=== PATIENT | female | born 1950 | race Caucasian/White ===

== ENCOUNTER → 2016-04-29 | Outpatient (CLI) | payer OTHER, MEDICARE ==
--- NOTE | 2016-04-29 16:38 | MR ---
MRI Upper Extremity, Right Shoulder History: Right shoulder pain. ICD10 code M25.511. Technique: MRI was performed of the right shoulder using a 3 [employer] MRI system. Oblique coronal, obliq ue sagittal, and axial images were obtained with standard imaging sequences. Findings: Acromioclavicular Region: Mild degenerative change is seen in the acromioclavicular joint. Prominent anterior curve and lateral downslope to the acromion with a subacromial spur. Subacromial/subdeltoid fluid collection. Rotator Cuff: Abnormal signal intensity and attenuation is seen in the distal supraspinatus tendon. T here is approximately 75% attenuation of the distal 1 cm. Mild abnormal signal intensity is seen in t he infraspinatus tendon without attenuation. Teres minor is unremarkable. Abnormal signal intensity i s seen in the distal subscapularis tendon with intrasubstance partial tear. Biceps tendon: Long head of the biceps tendon partially subluxes over the lesser tuberosity into the distal superior 1 cm of the subscapularis tendon. This abnormal signal intensity and attenuation in t his portion of the long head of the biceps tendon. Glenohumeral Joint: There is a partial tear and fraying in the posterior superior labrum in the 11 to 12 o'clock position. No other findings for labral tear. No evidence for an articular cartilage defec t of the glenohumeral joint. No significant glenohumeral joint effusion. General: Possible small subcortical cysts are seen in the greater tuberosity. No evidence for Hill-Sa chs deformity. No evidence for axillary lymphadenopathy. Impression: 1. Severe partial tear in the distal supraspinatus tendon. Mild tendinopathy infraspinatus tendon. Rodgers bacromial/subdeltoid bursitis. 2. Tendinopathy and partial tear distal subscapularis tendon. Long head of biceps tendon partially rodgers bluxes over the lesser tuberosity into the distal superior fibers of the subscapularis tendon with un derlying tendinopathy and partial tear in this portion of the long of the biceps tendon. 3. Fraying and partial tear posterior superior labrum. 4. Mild degenerative change of the acromioclavicular joint. Prominent anterior curve and lateral down slope to the acromion with a subacromial spur.
== END ==
LOC: FIMAGING 12:00
DX: M75.81 Other shoulder lesions, right shoulder (principal); M75.21 Bicipital tendinitis, right shoulder; M19.011 Primary osteoarthritis, right shoulder

== ENCOUNTER → 2017-09-24 | Outpatient (CLI) | payer OTHER, MEDICARE | LOC: FIMAGING 10:23 | PROVIDERS: ATTEND Orthopaedic Surgery | DX: M23.51 Chronic instability of knee, right knee (principal); M25.561 Pain in right knee; M25.461 Effusion, right knee; Z96.651 Presence of right artificial knee joint ==

== ENCOUNTER 2018-04-29 09:49 | Inpatient (IN) | payer OTHER, MEDICARE ==
--- NOTE | 2018-04-29 09:51 | EDPHY ---
HPI/HX/ROS/PE/MDM Narrative: CHIEF COMPLAINT: Left-sided flank and abdominal pain HPI: The patient is a 68 y/o female arriving via EMS from home complaining of intermittent left lateral flank pain and "burning" abdominal pain for the last 6 weeks. Per patient's paperwork that she brought with her she reports a history that includes acephalgic migraines, neuropathy, chronic fatigue syndrome , dysautonomia, and spinal stenosis. She's had some associated nausea and fatigue with these symptoms and has been eating less as a consequence. No diarrhea or constipation. She has difficulty saying why she came into the ED today, but does report that someone told her to come into the ED. She is concerned she could have diverticulitis. She received 4mg PO Zofran en route with improvement in symptoms. She is a poor historian. REVIEW OF SYSTEMS: A comprehensive 10 system review of systems is otherwise negative aside from elements mentioned in the history of present illness. PMH: migraines, neuropathy, chronic fatigue syndrome, dysautonomia, hysterectomy , appendectomy spinal fusions SOCIAL HISTORY: Lives in [place]. Retired. Several deaths in her family over the last year. PHYSICAL EXAM: General:Patient is alert, in no acute distress. ENT:Eyes are normal to inspection. ENT inspection normal. Neck: Normal inspection. Full range of motion. Respiratory:No respiratory distress. Breath sounds normal bilaterally. Cardiovascular: Regular rate and rhythm. Strong peripheral pulses. Normal cap refill. Abdomen:The abdomen is nontender to palpation. There are no peritoneal signs. Back: Normal to inspection. No tenderness to palpation. Skin: Normal color. No rash. Warm and dry. Extremities: Normal appearance. Full range of motion. Neuro: Oriented x3. Normal motor function. Normal sensory function. ED Course: This is a 68 y/o female who presents with a 6-week history of intermittent left- sided abdominal and flank pain sometimes associated with nausea. Exam is unremarkable. Plan for ISTAT, abdominal CT, symptom management. 4mg IV Zofran, 0.25mg IV Dilaudid, and 1L IV NS ordered. Abdominal CT: Lesions of multiple locations in the abdomen indicating malignancy Reassessed patient and discussed findings. Spoke with hospitalist service. Dr. Skaggs accepts admission. MDM: This patient presents with acute on chronic abdominal pain and is very unfortunately found to have widely metastatic cancer. She requires admission for further workup and pain control. - Data Points Imaging Results: Imaging Impressions Abdomen CT 04/29/18 10:34 Impression: 1. Extensive low-attenuation liver lesions compatible with metastases of unclear primary. 2. Multiple pulmonary nodules compatible with metastases. 3. Adenopathy in the abdomen and pelvis compatible with metastases. 4. Mesenteric stranding and nodularity, suspicious for carcinomatosis. 5 Additional findings as above. Findings discussed with Smooth Bowen MD, 04/29/2018 at 11:45. Imaging: Discussed imaging studies w/ molecular geneticist Radiologist, I viewed and interpreted images myself Laboratory Results: Laboratory Results 04/29/18 10:10 04/29/18 04/29/18 04/29/18 11:35 10:10 10:07 WBC 10.54 10^3/uL H 10^3/uL (3.80-9.50) RBC 4.79 10^6/uL 10^6/uL (4.18-5.33) Hgb 14.0 g/dL g/dL (12.6-16.3) POC Hgb 13.6 gm/dL gm/dL (12.6-16.3) Hct 40.8 % % (38.0-47.0) POC Hct 40 % % (38-47) MCV 85.2 fL fL (81.5-99.8) MCH 29.2 pg pg (27.9-34.1) MCHC 34.3 g/dL g/dL (32.4-36.7) RDW 13.6 % % (11.5-15.2) Plt Count 377 10^3/uL 10^3/uL (150-400) MPV 8.5 fL L fL (8.7-11.7) Neut % (Auto) 79.4 % H % (39.3-74.2) Lymph % (Auto) 13.2 % L % (15.0-45.0) [place] % (Auto) 5.5 % % (4.5-13.0) Eos % (Auto) 0.6 % % (0.6-7.6) Baso % (Auto) 0.8 % % (0.3-1.7) Nucleat RBC Rel Count 0.0 % % (0.0-0.2) Absolute Neuts (auto) 8.38 10^3/uL H 10^3/uL (1.70-6.50) Absolute Lymphs (auto) 1.39 10^3/uL 10^3/uL (1.00-3.00) Absolute Monos (auto) 0.58 10^3/uL 10^3/uL (0.30-0.80) Absolute Eos (auto) 0.06 10^3/uL 10^3/uL (0.03-0.40) Absolute Basos (auto) 0.08 10^3/uL 10^3/uL (0.02-0.10) Absolute Nucleated RBC 0.00 10^3/uL 10^3/uL (0-0.01) Immature Gran % 0.5 % % (0.0-1.1) Immature Gran # 0.05 10^3/uL 10^3/uL (0.00-0.10) POC Sodium 140 mEq/L mEq/L (135-145) POC Potassium 3.5 mEq/L mEq/L (3.3-5.0) POC Chloride 101 mEq/L mEq/L (97-110) POC BUN 6 mg/dL L mg/dL (7-23) POC Creatinine 0.5 mg/dL L mg/dL (0.6-1.0) POC Glucose 87 mg/dL mg/dL (70-100) Urine Color PALE YELLOW Urine Appearance HAZY Urine pH 6.0 (5.0-7.5) Ur Specific [place] 1.019 (1.002-1.030) Urine Protein NEGATIVE (NEGATIVE) Urine Ketones 1+ H (NEGATIVE) Urine Blood 1+ H (NEGATIVE) Urine Nitrate NEGATIVE (NEGATIVE) Urine Bilirubin NEGATIVE (NEGATIVE) Urine Urobilinogen NEGATIVE EU EU (0.2-1.0) Ur Leukocyte Esterase NEGATIVE (NEGATIVE) Urine RBC 1-3 /hpf /hpf (0-3) Urine WBC 1-3 /hpf /hpf (0-3) Ur Epithelial Cells NONE SEEN /lpf /lpf (NONE-1+) Urine Glucose NEGATIVE (NEGATIVE) Medications Given: Discontinued Medications Hydromorphone HCl (Dilaudid) 0.25 mg IVP EDNOW ONE Stop: 04/29/18 10:23 Last Admin: 04/29/18 10:40 Dose: 0.25 mg Sodium Chloride (Ns) 1,000 mls @ 0 mls/hr IV EDNOW ONE; Wide Open PRN Reason: Protocol Stop: 04/29/18 10:17 Last Admin: 04/29/18 10:39 Dose: 1,000 mls Ondansetron HCl (Zofran) 4 mg IVP EDNOW ONE Stop: 04/29/18 10:23 Last Admin: 04/29/18 10:39 Dose: 4 mg Point of Care Test Results: Chemistry 04/29/18 10:07 POC Sodium 140 mEq/L mEq/L (135-145) POC Potassium 3.5 mEq/L mEq/L (3.3-5.0) POC Chloride 101 mEq/L mEq/L (97-110) POC BUN 6 mg/dL L mg/dL (7-23) POC Creatinine 0.5 mg/dL L mg/dL (0.6-1.0) POC Glucose 87 mg/dL mg/dL (70-100) ISTAT H&H 04/29/18 10:07 POC Hgb 13.6 gm/dL gm/dL (12.6-16.3) POC Hct 40 % % (38-47) General Time Seen by Provider: 04/29/18 09:50 Initial Vital Signs: Initial Vital Signs Temperature (C) 37.1 C 04/29/18 10:03 Heart Rate 97 04/29/18 10:03 Respiratory Rate 18 04/29/18 10:03 Blood Pressure 144/90 H 04/29/18 10:03 O2 Sat (%) 95 04/29/18 10:03 O2 Delivery Mode Room Air Allergies/Adverse Reactions: acetaminophen [From Percocet] Allergy (Verified 04/29/18 10:00) amitriptyline [From Elavil] Allergy (Verified 04/29/18 10:00) erythromycin base Allergy (Verified 04/29/18 10:00) hydrocodone [From Vicodin] Allergy (Verified 04/29/18 10:00) oxycodone [From Percocet] Allergy (Verified 04/29/18 10:00) pregabalin [From Lyrica] Allergy (Verified 04/29/18 10:00) risperidone [From Risperdal] Allergy (Verified 04/29/18 10:00) Home Medications: Medication Instructions Recorded Acetaminophen [Tylenol ES 500 mg 1,000 mg PO Q6 PRN 04/29/18 (*)] Aspirin EC [Aspirin EC 81 mg (*)] 81 mg PO DAILY 04/29/18 Bisacodyl [Bisacodyl (*)] 5 mg PO PRN PRN 04/29/18 Diazepam [Diazepam] 5 - 10 mg PO DAILY PRN 04/29/18 Diclofenac Sodium [Voltaren] 2 gm TP QID 04/29/18 Estradiol [Estradiol 1 MG (*)] 1 mg PO DAILY 04/29/18 Herbals/Supplements -Info Only 1 ea PO DAILY 04/29/18 Levothyroxine Sodium 75 mcg PO DAILY 04/29/18 [Levothyroxine Sodium] Liothyronine Sodium [Liothyronine 5 mcg PO DAILY 04/29/18 Sodium] Methylphenidate HCl [Ritalin 20mg 20 mg PO 08,14 04/29/18 (*)] Progesterone Creme 200 mg TP HS 04/29/18 Rizatriptan Benzoate [Rizatriptan] 10 mg PO DAILY PRN MDD 30MG/24HR 04/29/18 Sertraline HCl [Zoloft 100mg (*)] 100 mg PO DAILY 04/29/18 Zolpidem Tartrate [Zolpidem 5 - 10 mg PO HS PRN 04/29/18 Tartrate] traMADol HCL [Tramadol HCl] 50 mg PO BID PRN 04/29/18 traZODone [traZODONE 50MG (*)] 25 - 50 mg PO HS PRN 04/29/18 Departure - Departure Disposition: [facility] Inpatient Acute Clinical Impression: Malignancy, Liver lesion Abdominal pain Qualifiers: Abdominal location: left lower quadrant Qualified Code(s): R10.32 - Left lower quadrant pain Condition: Fair Report Scribed for: Smooth Bowen Report Scribed by: Carrie Mayo Date of Report: 04/29/18 Time of Report: 09:52 Physician Review and Approval Statement: Portions of this note were transcribed by an ED scribe. I personally performed the history, physical exam, and medical decision making; and confirm the accuracy of the information in the transcribed note.
[2018-04-29] MEDS ORDERED: NS 1,000 ML IV ONE (10:16)
[2018-04-29 10:22] LABS: PLATELET COUNT 377 10^3/uL (150-400)
[2018-04-29] MEDS ORDERED: ONDANSETRON 4 MG/2 ML VIAL IVP ONE (10:22)
[2018-04-29] MEDS ORDERED: HYDROmorphONE/DILAUDID 2 MG/ML INJ IVP ONE ×3 (10:22→15:45)
[2018-04-29] MEDS ORDERED: IOPAMIDOL (ISOVUE 370) 75 ML BTL IV ONE ×2 (10:55)
[2018-04-29] MEDS ORDERED: ACETAMINOPHEN 325 MG TAB PO PRN (12:47)
--- NOTE | 2018-04-29 13:43 | PDGENHP ---
<Leeann Brady - Last Filed: 04/29/18 14:44> History and Physical - Chief Complaint Abdominal pain - History of Present Illness This is a 68 y/o female presenting with 6 weeks worth of abdominal pain associated with nausea, no emesis. She reports 2 weeks worth of back pain and then 3-4 weeks of abdominal pain noted to the left side. It is persistent and quite painful. She has lost her appetite and feels weak. She also reports long anjum colored stools. Last colonoscopy performed was at least 8-10 years ago per pt and she said it was unremarkable at that time. Abdominal CT reveal the following: extensive low-attenuation liver lesions compatible with metastases of unclear primary, multiple pulmonary nodules compatible with metastases, adenopathy in the abdomen and pelvis compatible with metastases, mesenteric stranding and nodularity suspicious for carcinomatosis. She is being admitted for further diagnostic work-up and monitoring. Past Medical/Surgical History 1. ADHD 2. COPD 3. Hypothyroidism 4. PTSD 5. HANNAH with CPAP 6. Acephalgic migraines 7. Neuropathy 8. Chronic fatigue syndrome 9. Dysautonomia 9. Spinal stenosis 10. Hysterectomy 11. Appendectomy 12. Spinal fusions 13. Right knee arthroplasty 14. Right shoulder surgery Social 1. . Denies illicit drugs or alcohol use. Former smoker. 2. In mourning; has had multiple family deaths recently. Her special needs daughter accidentally drowned 5 months ago. Her other daughter's fiancee had a seizure. Her who was 20 years older than her 3 years ago due to a stroke. She attempts to attend online grief support but her current ailments do not allow her to participate. She does attend AA which she says helps her tremendously. History Information - Allergies/Home Medication List Allergies/Adverse Reactions: acetaminophen [From Percocet] Allergy (Verified 04/29/18 10:00) amitriptyline [From Elavil] Allergy (Verified 04/29/18 10:00) erythromycin base Allergy (Verified 04/29/18 10:00) hydrocodone [From Vicodin] Allergy (Verified 04/29/18 10:00) oxycodone [From Percocet] Allergy (Verified 04/29/18 10:00) pregabalin [From Lyrica] Allergy (Verified 04/29/18 10:00) risperidone [From Risperdal] Allergy (Verified 04/29/18 10:00) Home Medications: Acetaminophen [Tylenol ES 500 mg (*)] 1,000 mg PO Q6 PRN 04/29/18 [Last Taken Unknown] Aspirin EC [Aspirin EC 81 mg (*)] 81 mg PO DAILY 04/29/18 [Last Taken Unknown] Bisacodyl [Bisacodyl (*)] 5 mg PO PRN PRN 04/29/18 [Last Taken Unknown] Diazepam [Diazepam] 5 - 10 mg PO DAILY PRN 04/29/18 [Last Taken Unknown] Diclofenac Sodium [Voltaren] 2 gm TP QID 04/29/18 [Last Taken Unknown] Estradiol [Estradiol 1 MG (*)] 1 mg PO DAILY 04/29/18 [Last Taken Unknown] Herbals/Supplements -Info Only 1 ea PO DAILY 04/29/18 [Last Taken Unknown] Levothyroxine Sodium [Levothyroxine Sodium] 75 mcg PO DAILY 04/29/18 [Last Taken 04/29/18] Liothyronine Sodium [Liothyronine Sodium] 5 mcg PO DAILY 04/29/18 [Last Taken ] Methylphenidate HCl [Ritalin 20mg (*)] 20 mg PO 08,14 04/29/18 [Last Taken Unknown] Progesterone Creme 200 mg TP HS 04/29/18 [Last Taken Unknown] Rizatriptan Benzoate [Rizatriptan] 10 mg PO DAILY PRN MDD 30MG/24HR 04/29/18 [ Last Taken Unknown] Sertraline HCl [Zoloft 100mg (*)] 100 mg PO DAILY 04/29/18 [Last Taken Unknown] Zolpidem Tartrate [Zolpidem Tartrate] 5 - 10 mg PO HS PRN 04/29/18 [Last Taken Unknown] traMADol HCL [Tramadol HCl] 50 mg PO BID PRN 04/29/18 [Last Taken Unknown] traZODone [traZODONE 50MG (*)] 25 - 50 mg PO HS PRN 04/29/18 [Last Taken Unknown ] I have personally reviewed and updated: family history, medical history, social history, surgical history Past Medical History: See HPI list - Surgical History Additional surgical history: See HPI list - Family History Additional family history: Father - brain cancer. Grandfather - stomach cancer - Social History Smoking Status: Never smoked Alcohol Use: Sober Drug Use: None Review of Systems Review of Systems: ROS: 10pt was reviewed & negative except for what was stated in HPI & below Constitutional: Reports: malaise, weakness, weight loss EENMT: Reports: no symptoms Cardiac: Reports: no symptoms Respiratory: Reports: shortness of breath Gastrointestinal: Reports: abdominal pain, nausea, other (Anjum colored stools) Genitourinary: Reports: no symptoms Muscolosketal: Reports: back pain Skin: Reports: no symptoms Neurological: Reports: anxiety, depressed, emotional problems, headache (Chronic ), weakness Hematologic/Lymphatic: Reports: no symptoms Immunologic/Allergy: Reports: other (See allergy list) Physical Exam Physical Exam: Lab data and imaging reviewed Temp Pulse Resp BP Pulse Ox 37.3 C 93 16 159/89 H 93 04/29/18 13:39 04/29/18 13:39 04/29/18 13:39 04/29/18 13:39 04/29/18 13:39 Constitutional: no apparent distress, appears nourished, uncomfortable Eyes: PERRL, anicteric sclera, EOMI Ears, Nose, Mouth, Throat: moist mucous membranes, hearing normal, ears appear normal, no oral mucosal ulcers Cardiovascular: regular rate and rhythym, no murmur, rub, or gallop, tachycardia Peripheral Pulses: 2+: dorsalis-pedis (R) (Radial 2+), dorsalis-pedis (L) ( Radial 2+) Respiratory: no respiratory distress, no rales or rhonchi, clear to auscultation Gastrointestinal: no palpable masses, tenderness, other (Hypoactive BS) Genitourinary: no bladder fullness, no bladder tenderness Skin: warm, normal color, no rashes or abrasions, no fluctuance, no induration, No mottled Musculoskeletal: full muscle strength, no muscle tenderness, normal joint ROM, no joint effusions Neurologic: AAOx3, sensation intact bilaterally, CN II-XII Intact Psychiatric: interacting appropriately, not encephalopathic, thought process linear, depressed Lymph, Heme, Immunologic: no cervical LAD, no supraclavicular LAD Lab Data & Imaging Review 04/29/18 10:10 WBC 10.54 10^3/uL (3.80-9.50) H 04/29/18 10:10 RBC 4.79 10^6/uL (4.18-5.33) 04/29/18 10:10 Hgb 14.0 g/dL (12.6-16.3) 04/29/18 10:10 POC Hgb 13.6 gm/dL (12.6-16.3) 04/29/18 10:07 Hct 40.8 % (38.0-47.0) 04/29/18 10:10 POC Hct 40 % (38-47) 04/29/18 10:07 MCV 85.2 fL (81.5-99.8) 04/29/18 10:10 MCH 29.2 pg (27.9-34.1) 04/29/18 10:10 MCHC 34.3 g/dL (32.4-36.7) 04/29/18 10:10 RDW 13.6 % (11.5-15.2) 04/29/18 10:10 Plt Count 377 10^3/uL (150-400) 04/29/18 10:10 MPV 8.5 fL (8.7-11.7) L 04/29/18 10:10 Neut % (Auto) 79.4 % (39.3-74.2) H 04/29/18 10:10 Lymph % (Auto) 13.2 % (15.0-45.0) L 04/29/18 10:10 [place] % (Auto) 5.5 % (4.5-13.0) 04/29/18 10:10 Eos % (Auto) 0.6 % (0.6-7.6) 04/29/18 10:10 Baso % (Auto) 0.8 % (0.3-1.7) 04/29/18 10:10 Nucleat RBC Rel Count 0.0 % (0.0-0.2) 04/29/18 10:10 Absolute Neuts (auto) 8.38 10^3/uL (1.70-6.50) H 04/29/18 10:10 Absolute Lymphs (auto) 1.39 10^3/uL (1.00-3.00) 04/29/18 10:10 Absolute Monos (auto) 0.58 10^3/uL (0.30-0.80) 04/29/18 10:10 Absolute Eos (auto) 0.06 10^3/uL (0.03-0.40) 04/29/18 10:10 Absolute Basos (auto) 0.08 10^3/uL (0.02-0.10) 04/29/18 10:10 Absolute Nucleated RBC 0.00 10^3/uL (0-0.01) 04/29/18 10:10 Immature Gran % 0.5 % (0.0-1.1) 04/29/18 10:10 Immature Gran # 0.05 10^3/uL (0.00-0.10) 04/29/18 10:10 POC Sodium 140 mEq/L (135-145) 04/29/18 10:07 POC Potassium 3.5 mEq/L (3.3-5.0) 04/29/18 10:07 POC Chloride 101 mEq/L (97-110) 04/29/18 10:07 POC BUN 6 mg/dL (7-23) L 04/29/18 10:07 POC Creatinine 0.5 mg/dL (0.6-1.0) L 04/29/18 10:07 POC Glucose 87 mg/dL (70-100) 04/29/18 10:07 Urine Color PALE YELLOW 04/29/18 11:35 Urine Appearance HAZY 04/29/18 11:35 Urine pH 6.0 (5.0-7.5) 04/29/18 11:35 Ur Specific [place] 1.019 (1.002-1.030) 04/29/18 11:35 Urine Protein NEGATIVE (NEGATIVE) 04/29/18 11:35 Urine Ketones 1+ (NEGATIVE) H 04/29/18 11:35 Urine Blood 1+ (NEGATIVE) H 04/29/18 11:35 Urine Nitrate NEGATIVE (NEGATIVE) 04/29/18 11:35 Urine Bilirubin NEGATIVE (NEGATIVE) 04/29/18 11:35 Urine Urobilinogen NEGATIVE EU (0.2-1.0) 04/29/18 11:35 Ur Leukocyte Esterase NEGATIVE (NEGATIVE) 04/29/18 11:35 Urine RBC 1-3 /hpf (0-3) 04/29/18 11:35 Urine WBC 1-3 /hpf (0-3) 04/29/18 11:35 Ur Epithelial Cells NONE SEEN /lpf (NONE-1+) 04/29/18 11:35 Urine Glucose NEGATIVE (NEGATIVE) 04/29/18 11:35 Assessment & Plan Plan: 68 y/o female presenting with 6-week onset of back and abdominal pain, associated with anjum colored stools and nausea. 1. Abdominal pain: abdominal CT reveal multiple lesions and nodules lungs, liver , abdomen and pelvis - no clear primary. Her last colonoscopy was 8-10 years ago and reported negative for any significant findings. She has been having anjum colored stools. -Consulted oncology. I spoke with Dr. Soto who wishes to proceed with IR liver biopsy initially. -Consulted GI. I spoke with Dr. Dyer who is willing to evaluate the pt. The pt will most likely need a upper scope but will wait for the biopsy to proceed and receive recommendation from Dr. Soto. -Consulted IR. I spoke to Dr. Mejias who will be able to perform the biopsy today. -Obtaining LFTs/CMP/protime/carbohydrate antigen/carcinoembryonic antigen -Liver US pending -Pain management PO/IVP PRN 2. Nausea: no emesis. No appetite. Anti-emetics PRN 3. Depression: 5 months prior, her special needs daughter accidentally drowned. -Behavioral RN consult; pt agrees to this and is appreciative -She may continue sertraline 4. Spinal stenosis: has had multiple spinal surgeries. She reports taking Ibuprofen every day for 15 years. She stopped a year ago and transitioned to tramadol and tylenol. She attempted to take these for her back and abdominal pain recently with no relief. 5. Leukocytosis: (10.54). Mild. Hemodynamically stable. Afebrile. Unlikely this is infectious. Instead probably reactive. Will recheck CBC/CMP tomorrow and monitor. Home medications need pharmacy verification before reconciling. Will reconcile once verified. Diet: NPO VTE ppx: SCDs, Lovenox subq starting tomorrow Code: DNR Dispo: Admit to inpatient <Lita Skaggs - Last Filed: 04/30/18 08:40> History and Physical - History of Present Illness She was seen and examined by myself last night after admission. To clarify- She is being admitted for pain management as requiring IV pain medications. I have revwd and agree with her care plan and documentation. Review of Systems Review of Systems: Physical Exam Physical Exam: Temp Pulse Resp BP Pulse Ox 98.4 F 69 16 138/73 H 97 04/30/18 07:42 04/30/18 07:42 04/30/18 07:42 04/30/18 07:42 04/30/18 07:42 O2 (L/minute) 2 Lab Data & Imaging Review 04/30/18 04:32 04/30/18 04:32 WBC 11.79 10^3/uL (3.80-9.50) H 04/30/18 04:32 RBC 4.23 10^6/uL (4.18-5.33) 04/30/18 04:32 Hgb 12.2 g/dL (12.6-16.3) L 04/30/18 04:32 POC Hgb 13.6 gm/dL (12.6-16.3) 04/29/18 10:07 Hct 36.3 % (38.0-47.0) L 04/30/18 04:32 POC Hct 40 % (38-47) 04/29/18 10:07 MCV 85.8 fL (81.5-99.8) 04/30/18 04:32 MCH 28.8 pg (27.9-34.1) 04/30/18 04:32 MCHC 33.6 g/dL (32.4-36.7) 04/30/18 04:32 RDW 13.6 % (11.5-15.2) 04/30/18 04:32 Plt Count 333 10^3/uL (150-400) 04/30/18 04:32 MPV 8.5 fL (8.7-11.7) L 04/29/18 10:10 Neut % (Auto) 79.4 % (39.3-74.2) H 04/29/18 10:10 Lymph % (Auto) 13.2 % (15.0-45.0) L 04/29/18 10:10 [place] % (Auto) 5.5 % (4.5-13.0) 04/29/18 10:10 Eos % (Auto) 0.6 % (0.6-7.6) 04/29/18 10:10 Baso % (Auto) 0.8 % (0.3-1.7) 04/29/18 10:10 Nucleat RBC Rel Count 0.0 % (0.0-0.2) 04/29/18 10:10 Absolute Neuts (auto) 8.38 10^3/uL (1.70-6.50) H 04/29/18 10:10 Absolute Lymphs (auto) 1.39 10^3/uL (1.00-3.00) 04/29/18 10:10 Absolute Monos (auto) 0.58 10^3/uL (0.30-0.80) 04/29/18 10:10 Absolute Eos (auto) 0.06 10^3/uL (0.03-0.40) 04/29/18 10:10 Absolute Basos (auto) 0.08 10^3/uL (0.02-0.10) 04/29/18 10:10 Absolute Nucleated RBC 0.00 10^3/uL (0-0.01) 04/29/18 10:10 Immature Gran % 0.5 % (0.0-1.1) 04/29/18 10:10 Immature Gran # 0.05 10^3/uL (0.00-0.10) 04/29/18 10:10 PT 14.2 SEC (12.0-15.0) 04/29/18 15:45 INR 1.08 (0.83-1.16) 04/29/18 15:45 APTT 36.9 SEC (23.0-38.0) 04/29/18 15:45 POC Sodium 140 mEq/L (135-145) 04/29/18 10:07 Sodium 136 mEq/L (135-145) 04/30/18 04:32 POC Potassium 3.5 mEq/L (3.3-5.0) 04/29/18 10:07 Potassium 3.9 mEq/L (3.5-5.2) 04/30/18 04:32 POC Chloride 101 mEq/L (97-110) 04/29/18 10:07 Chloride 107 mEq/L (97-110) 04/30/18 04:32 Carbon Dioxide 22 mEq/l (22-31) 04/30/18 04:32 Anion Gap 7 mEq/L (6-14) 04/30/18 04:32 POC BUN 6 mg/dL (7-23) L 04/29/18 10:07 BUN 6 mg/dL (7-23) L 04/30/18 04:32 Creatinine 0.5 mg/dL (0.6-1.0) L 04/30/18 04:32 POC Creatinine 0.5 mg/dL (0.6-1.0) L 04/29/18 10:07 Estimated GFR > 60 04/30/18 04:32 Glucose 88 mg/dL (70-100) 04/30/18 04:32 POC Glucose 87 mg/dL (70-100) 04/29/18 10:07 Calcium 8.8 mg/dL (8.5-10.4) 04/30/18 04:32 Total Bilirubin 0.6 mg/dL (0.1-1.4) 04/30/18 04:32 Conjugated Bilirubin 0.4 mg/dL (0.0-0.5) 04/29/18 15:45 Unconjugated Bilirubin 0.3 mg/dL (0.0-1.1) 04/29/18 15:45 AST 195 IU/L (14-46) H 04/30/18 04:32 ALT 112 IU/L (9-52) H 04/30/18 04:32 Alkaline Phosphatase 213 IU/L (38-126) H 04/30/18 04:32 Total Protein 6.0 g/dL (6.3-8.2) L 04/30/18 04:32 Albumin 3.3 g/dL (3.5-5.0) L 04/30/18 04:32 Carcinoembryonic Ag 66.80 ng/mL (0.00-3.00) H 04/29/18 15:45 TSH 0.859 uIU/mL (0.465-4.680) 04/29/18 15:45 Urine Color PALE YELLOW 04/29/18 11:35 Urine Appearance HAZY 04/29/18 11:35 Urine pH 6.0 (5.0-7.5) 04/29/18 11:35 Ur Specific [place] 1.019 (1.002-1.030) 04/29/18 11:35 Urine Protein NEGATIVE (NEGATIVE) 04/29/18 11:35 Urine Ketones 1+ (NEGATIVE) H 04/29/18 11:35 Urine Blood 1+ (NEGATIVE) H 04/29/18 11:35 Urine Nitrate NEGATIVE (NEGATIVE) 04/29/18 11:35 Urine Bilirubin NEGATIVE (NEGATIVE) 04/29/18 11:35 Urine Urobilinogen NEGATIVE EU (0.2-1.0) 04/29/18 11:35 Ur Leukocyte Esterase NEGATIVE (NEGATIVE) 04/29/18 11:35 Urine RBC 1-3 /hpf (0-3) 04/29/18 11:35 Urine WBC 1-3 /hpf (0-3) 04/29/18 11:35 Ur Epithelial Cells NONE SEEN /lpf (NONE-1+) 04/29/18 11:35 Urine Glucose NEGATIVE (NEGATIVE) 04/29/18 11:35 Assessment & Plan Assessment: Abdominal pain (Acute) Liver lesion (Acute) Malignancy (Acute) Plan: 6. Hypothyroidism- check TSH 7. HRT- check re last mammo 8 Pain management with multiple allergies- I discussed diff reactions with her, says vicodin made her angry' but doesn't think has had oxycodone prev. She was worried about taking it, but agrees to try it tomorrow to see if an option for her ongoing. Dilaudid helps, tramadol not sufficient. PCP- Jocelyne Epps tried to call, left message. Apparently he is retiring, so needs referral to new PCP prior to discharge. Dispo- likely > 2 mdnts bc of need for adequate pain control
[2018-04-29] MEDS: HYDROmorphONE/DILAUDID 1 MG/ML INJ IVP PRN ×4 (14:08→22:57)
[2018-04-29] MEDS: ONDANSETRON 4 MG/2 ML VIAL IVP PRN (14:08)
--- NOTE | 2018-04-29 14:35 | PDCONSULT ---
Patient Resource Specialist Note: Oncology consultation note Requesting provider: Lita Skaggs Reason for consultation: Presumed metastatic cancer History of present illness: Cara van is a very pleasant 68-year-old female with history of obstructive sleep apnea and COPD who was admitted for abdominal pain found to have presumed metastatic cancer. She states that over the last year she has had a lot of psychosocial stress with the passing of her from complications related to a stroke. She moved from [facility] to [place] to take care of her daughter who had epilepsy. Unfortunately her daughter then around 5 months ago in a swimming incident. She states that over this period of time she lost around 7 lb which she attributed to her grieving. She states that she has had longstanding lower back pain but that worsened over the last month. Then 2 weeks ago she developed significant lower left abdominal pain that he persistently worsened. She noted changes in her stool caliber. That about a week ago she did notice some dark and foul-smelling stools. She denies any postprandial abdominal pain. She denies any symptoms of GERD or dysphagia. She then presented to [facility] where CT of the abdomen pelvis was performed that demonstrated likely metastatic disease to the liver, lung and abdominal lymph nodes. Her last mammogram was 5 years ago. Her last colonoscopy was 8 years ago. Past medical and surgical history: COPD Hypothyroidism Obstructive sleep apnea History of migraines Dysautonomia Spinal stenosis Hysterectomy Appendectomy Spinal fusions Right knee surgery Right shoulder surgery Bilateral breast implants ADHD Social history: She was a former smoker and quit about 20 years ago. She smoked for 20 years at up to 2 pack per day. She also quit drinking around 6 years ago. Family history: Father had astrocytoma and age 65. Mother had Alzheimer' s. Paternal grandmother possibly had gastric cancer. Allergies: Noted in the EMR Review of systems: 12 point review systems obtained is otherwise negative tunless stated in HPI. Physical examination: Vital signs reviewed General: Pleasant-appearing female in no acute distress conversant HEENT: Oropharynx is clear extra movements are intact pupils equal round react to light Cardiovascular: Regular rhythm no murmurs gallops or rubs Pulmonary: Clear to auscultation bilaterally Abdomen: Pain on deep palpation of the epigastrium, slight pain in the left lower quadrant, no rebound no guarding bowel sounds are present Skin: No skin lesions MSK: No cyanosis clubbing or edema Psych: Tearful at times it has appropriate affect Neuro: Cranial 2 through 12 intact motor and sensation intact WBC 10.54 10^3/uL (3.80-9.50) H 04/29/18 10:10 RBC 4.79 10^6/uL (4.18-5.33) 04/29/18 10:10 Hgb 14.0 g/dL (12.6-16.3) 04/29/18 10:10 POC Hgb 13.6 gm/dL (12.6-16.3) 04/29/18 10:07 Hct 40.8 % (38.0-47.0) 04/29/18 10:10 POC Hct 40 % (38-47) 04/29/18 10:07 MCV 85.2 fL (81.5-99.8) 04/29/18 10:10 MCH 29.2 pg (27.9-34.1) 04/29/18 10:10 MCHC 34.3 g/dL (32.4-36.7) 04/29/18 10:10 RDW 13.6 % (11.5-15.2) 04/29/18 10:10 Plt Count 377 10^3/uL (150-400) 04/29/18 10:10 MPV 8.5 fL (8.7-11.7) L 04/29/18 10:10 Neut % (Auto) 79.4 % (39.3-74.2) H 04/29/18 10:10 Lymph % (Auto) 13.2 % (15.0-45.0) L 04/29/18 10:10 [place] % (Auto) 5.5 % (4.5-13.0) 04/29/18 10:10 Eos % (Auto) 0.6 % (0.6-7.6) 04/29/18 10:10 Baso % (Auto) 0.8 % (0.3-1.7) 04/29/18 10:10 Nucleat RBC Rel Count 0.0 % (0.0-0.2) 04/29/18 10:10 Absolute Neuts (auto) 8.38 10^3/uL (1.70-6.50) H 04/29/18 10:10 Absolute Lymphs (auto) 1.39 10^3/uL (1.00-3.00) 04/29/18 10:10 Absolute Monos (auto) 0.58 10^3/uL (0.30-0.80) 04/29/18 10:10 Absolute Eos (auto) 0.06 10^3/uL (0.03-0.40) 04/29/18 10:10 Absolute Basos (auto) 0.08 10^3/uL (0.02-0.10) 04/29/18 10:10 Absolute Nucleated RBC 0.00 10^3/uL (0-0.01) 04/29/18 10:10 Immature Gran % 0.5 % (0.0-1.1) 04/29/18 10:10 Immature Gran # 0.05 10^3/uL (0.00-0.10) 04/29/18 10:10 POC Sodium 140 mEq/L (135-145) 04/29/18 10:07 POC Potassium 3.5 mEq/L (3.3-5.0) 04/29/18 10:07 POC Chloride 101 mEq/L (97-110) 04/29/18 10:07 POC BUN 6 mg/dL (7-23) L 04/29/18 10:07 POC Creatinine 0.5 mg/dL (0.6-1.0) L 04/29/18 10:07 POC Glucose 87 mg/dL (70-100) 04/29/18 10:07 Urine Color PALE YELLOW 04/29/18 11:35 Urine Appearance HAZY 04/29/18 11:35 Urine pH 6.0 (5.0-7.5) 04/29/18 11:35 Ur Specific [place] 1.019 (1.002-1.030) 04/29/18 11:35 Urine Protein NEGATIVE (NEGATIVE) 04/29/18 11:35 Urine Ketones 1+ (NEGATIVE) H 04/29/18 11:35 Urine Blood 1+ (NEGATIVE) H 04/29/18 11:35 Urine Nitrate NEGATIVE (NEGATIVE) 04/29/18 11:35 Urine Bilirubin NEGATIVE (NEGATIVE) 04/29/18 11:35 Urine Urobilinogen NEGATIVE EU (0.2-1.0) 04/29/18 11:35 Ur Leukocyte Esterase NEGATIVE (NEGATIVE) 04/29/18 11:35 Urine RBC 1-3 /hpf (0-3) 04/29/18 11:35 Urine WBC 1-3 /hpf (0-3) 04/29/18 11:35 Ur Epithelial Cells NONE SEEN /lpf (NONE-1+) 04/29/18 11:35 Urine Glucose NEGATIVE (NEGATIVE) 04/29/18 11:[address] 04/29/18 10:34 Impression: 1. Extensive low-attenuation liver lesions compatible with metastases of unclear primary. 2. Multiple pulmonary nodules compatible with metastases. 3. Adenopathy in the abdomen and pelvis compatible with metastases. 4. Mesenteric stranding and nodularity, suspicious for carcinomatosis. 5 Additional findings as above. Findings discussed with Smooth Bowen MD, 04/29/2018 at 11:45. Assessment plan Cara is a very pleasant 68-year-old female who presents for evaluation with symptoms of abdominal pain found to have likely metastatic cancer. 1. Presumed metastatic cancer: I have reviewed her CT imaging with her with concerns that she might have an underlying GI primary with metastasis to the lungs and liver. In viewing her scans, I think it is reasonable to proceed with a liver biopsy to obtain tissue. I explained to her that her treatment options would be highly dependent on the source of her primary. She will need a CT of the chest as well for completion of staging but I would hold off on that until she sees us in clinic. I did obtain some tumor markers including a CA 19 9 and CEA. I have also obtained a liver function panel which is pending. All questions were answered. She voiced understanding of the plan.
--- NOTE | 2018-04-29 15:03 | PDMN ---
Medical Necessity Medical necessity: [facility] M05 Abd Pain: 68 yo w/ abd pain and nausea. Imaging reveals multiple lesions and nodules in lung, liver, abd and pelvis w/ no clear primary. Onc and GI consults. Consistent w/ metastatic disease, new. IR to perform Bx today. IV opioids and IV antiemetics for s/sx management, further dx testing pending. Anticipate>2MN for ongoing s/sx management and dx testing and treatment. Meets [facility] IP criteria for abd pain for ID of etiology or finding that requires IP care.
[2018-04-29] MEDS ORDERED: NS 1,000 ML IV SCH ×2 (15:15→16:30)
[2018-04-29] MEDS ORDERED: LIDOCAINE 1% 300 MG/30 ML SDV ONE (15:30)
[2018-04-29] MEDS ORDERED: DIAZEPAM 5 MG TAB PO PRN (15:45)
[2018-04-29] MEDS ORDERED: BISACODYL 10 MG SUPP PR PRN (15:48)
[2018-04-29] MEDS ORDERED: POLYETHYLENE GLYCOL 3350 17 GM PKT PO PRN (15:48)
[2018-04-29] MEDS ORDERED: MAGNESIUM HYDROXIDE 30 ML UDCUP PO PRN (15:48)
[2018-04-29] MEDS ORDERED: LACTULOSE 20 GM/30 ML UDCUP PO PRN (15:48)
[2018-04-29 16:11] LABS: INR 1.08 (0.83-1.16); PROTIME(PATIENT) 14.2 SEC (12.0-15.0)
[2018-04-29] MEDS ORDERED: fentaNYL 100 MCG/2 ML INJ IVP PRN ×2 (16:24→17:29)
[2018-04-29] MEDS ORDERED: NALOXONE HCL 0.4 MG/ML INJ ONE (16:24)
[2018-04-29] MEDS ORDERED: NALOXONE HCL 0.4 MG/ML INJ IVP PRN (16:24)
[2018-04-29] MEDS ORDERED: fentaNYL 100 MCG/2 ML INJ ONE (16:24)
[2018-04-29] MEDS ORDERED: MIDAZOLAM 2 MG/2 ML VIAL ONE (17:13)
[2018-04-29] MEDS ORDERED: MIDAZOLAM 2 MG/2 ML VIAL IVP PRN (17:29)
[2018-04-29] MEDS: PROGESTERONE 200 MG TP SCH (20:13)
[2018-04-29] MEDS: ONDANSETRON DISINTEGRATING 4 MG TAB PO PRN (20:21)
[2018-04-29] MEDS: SENNOSIDES/DOCUSATE SODIUM TAB PO SCH ×2 (20:56→22:12)
[2018-04-29] MEDS: LORazepam 0.5 MG TAB PO PRN (20:56)
[2018-04-29] MEDS: traMADol 50 MG TAB PO SCH (22:07)
[2018-04-29] MEDS: ZOLPIDEM TARTRATE 5 MG TAB PO PRN (22:12)
[2018-04-30] MEDS: oxyCODONE IR 5 MG TAB PO PRN ×3 (02:36→14:59)
[2018-04-30] MEDS: ONDANSETRON 4 MG/2 ML VIAL IVP PRN (02:36)
[2018-04-30] MEDS: HYDROmorphONE/DILAUDID 1 MG/ML INJ IVP PRN ×2 (05:09→11:54)
[2018-04-30] MEDS: ONDANSETRON DISINTEGRATING 4 MG TAB PO PRN ×3 (08:19→21:02)
[2018-04-30] MEDS: traMADol 50 MG TAB PO SCH ×3 (08:20→22:49)
[2018-04-30] MEDS: SERTRALINE HCL 100 MG TAB PO SCH (08:22)
[2018-04-30] MEDS: LEVOTHYROXINE 75 MCG TAB PO SCH (08:22)
[2018-04-30] MEDS: ENOXAPARIN 40 MG/0.4 ML SYR SC SCH (08:22)
[2018-04-30] MEDS: ESTRADIOL 1 MG TAB PO SCH (08:22)
[2018-04-30] MEDS: SENNOSIDES/DOCUSATE SODIUM TAB PO SCH ×2 (08:22→21:02)
[2018-04-30] MEDS: LIOTHYRONINE SODIUM 5 MCG TAB PO SCH (08:28)
[2018-04-30] MEDS ORDERED: HYDROmorphONE/DILAUDID 2 MG TAB PO PRN (09:10)
[2018-04-30] MEDS: FAMOTIDINE 20 MG TAB PO SCH ×2 (09:41→21:02)
--- NOTE | 2018-04-30 10:53 | SOAPPROG ---
MARY JO Progress Note Assessment/Plan: Assessment: - Widely metastatic CA - workup for primary in progress. She has an elevated CEA at 66. Liver bx performed on 29 APR 2018 - results pending. Last colonoscopy 8-9 years ago according to Cara. She did notice some blood in her stool today. Breast exam shows bilateral implants and irregular tissue but no obvious CA. GI primary is suspected. Will await biopsy results. She will need further staging with a PET/CT as an outpatient. She may also need a colonoscopy. Treatment plan will be discussed with the patient once we know what the primary site is. Unfortunately, treatment will likely be with palliative intent. Workup can be completed as an outpatient if she is able to take PO adequately and she is independent in her ADLs. - Abdominal pain - worse with eating - will need to evaluate for adequate PO intake prior to d/c - Support system - tenuous with the recent deaths of her and special needs daughter. Plan: - Assess PO intake and ADL - D/C to home when adequate - Check path when available - Further treatment planning w/u as an outpatient. Subjective: Pain with eating. Appropriately anxious about diagnosis and prognosis Objective: Vital Signs Temp Pulse Resp BP Pulse Ox 36.9 C 69 16 138/73 H 97 04/30/18 07:42 04/30/18 07:42 04/30/18 07:42 04/30/18 07:42 04/30/18 07:42 Laboratory Results 04/30/18 04:32 04/30/18 04:32 04/28/18 04/29/18 04/30/18 23:59 23:59 23:59 Intake Total 100 1000 Balance 100 1000 PT 14.2 SEC (12.0-15.0) 04/29/18 15:45 INR 1.08 (0.83-1.16) 04/29/18 15:45 Physical Exam - Physical Exam General Appearance: WD/WN, alert, anxiety Respiratory: lungs clear Cardiac/Chest: regular rate, rhythm Abdomen: hepatomegaly, other (mass palpated LUQ) Lymphatic: other (L SC hard mobile LN abotu 5mm diameter) Neuro/Psych: alert, oriented x 3 ICD10 Worksheet Patient Problems: Problems Problem Status Onset Malignancy Acute Liver lesion Acute Abdominal pain Acute
[2018-04-30] MEDS: LORazepam 0.5 MG TAB PO PRN ×2 (11:54→21:02)
[2018-04-30] MEDS ORDERED: diphenhydrAMINE 25 MG CAP PO PRN (17:10)
--- NOTE | 2018-04-30 17:12 | HOSPPROG ---
Hospitalist Progress Note Assessment/Plan: 1. Abdominal pain, CT with metastatic lesions throughout abdomen. -s/p liver bx yesterday -breast exam today by Dr Jimenez, may need colonoscopy (but OK as outpt) -continue to transition to PO meds with adequate pain control so can discharge home -discussed care plan with Dr Jimenez, will FU as an outpt at [facility] to review bx results, discuss palliative treatments 2. Depression/grief/stress -continue SSRI -discussed need for new PCP/support 3. Spinal stenosis, s/p multiple spinal surgeries 4. Hypothyroid -TSH OK, continue current dose 5.anemia -recheck tomorrow for stability, check iron 6. transaminitis, s/p bx yesterday -recheck tomorrow PCP:Dr Gonzalez at [facility] (retiring), several PCP names given to establish care (she prefers [place]/close to ) Diet: as tolerated VTE ppx: SCDs, Lovenox subq Code: DNR Dispo: hopeful DC tomorrow if pain OK with po meds and able to eat/drink Subjective: Still having pain, but improved with pain medications. Trying to take oral oxy and oral dilaudid. Some itching noticed. No 'anger' like when she took pain meds prev. Has had small amounts to eat/drink, no n/v. Had a BM today. No CP/SOB/difficulty breathing/tongue swelling/FORMAN. Objective: Vital Signs Temp Pulse Resp BP Pulse Ox 98.6 F 82 16 132/64 H 97 04/30/18 16:50 04/30/18 16:50 04/30/18 16:50 04/30/18 16:50 04/30/18 16:50 Laboratory Results 04/30/18 04:32 04/30/18 04:32 04/29/18 04/30/18 05/01/18 11:59 11:59 11:59 Intake Total 1600 Balance 1600 PT 14.2 SEC (12.0-15.0) 04/29/18 15:45 INR 1.08 (0.83-1.16) 04/29/18 15:45 - Time Spent With Patient Time Spent with Patient: greater than 25 minutes Time Spent with Patient: Greater than 25 minutes spent on this patients care, greater than 50% of time spent counseling, educating, and coordinating care regarding the above mentioned plan. - Pending Discharge Pending Discharge Within 48 Hours: Yes Pending Discharge Date: 05/02/18 Pending Discharge Time: 11:00 - Physical Exam Constitutional: no apparent distress, appears nourished Eyes: anicteric sclera Ears, Nose, Mouth, Throat: moist mucous membranes, hearing normal Cardiovascular: regular rate and rhythym, no murmur, rub, or gallop, No edema Respiratory: no respiratory distress, no rales or rhonchi, clear to auscultation Gastrointestinal: normoactive bowel sounds, tenderness (throughout, mild/less than yesterday's exam), No ascites, No rebound, No distension Skin: warm Psychiatric: interacting appropriately, not anxious, not encephalopathic ICD10 Worksheet Patient Problems: Problems Problem Status Onset Abdominal pain Acute Liver lesion Acute Malignancy Acute
--- NOTE | 2018-04-30 17:27 | ASMTCMCOM ---
CM Note CM Note Notes: Discussed pt with provider. Pt admitted for abd pain and metastatic cancer, new diagnosis. Pt not aware at time of discussion with hospitalist. oncology navigatoroncology consultant notified via email. Pt will discharge independently and follow up outpatient with oncology. Pt likely to discharge tomorrow. D/C Plan: Independent. Date Signed: 04/30/2018 05:26 PM Electronically Signed By:Isela Isaac
[2018-04-30] MEDS: PROGESTERONE 200 MG TP SCH (21:01)
[2018-04-30] MEDS: ZOLPIDEM TARTRATE 5 MG TAB PO PRN (22:49)
[2018-04-30] MEDS: HYDROmorphONE/DILAUDID 4 MG TAB PO PRN (22:50)
[2018-05-01] MEDS: HYDROmorphONE/DILAUDID 4 MG TAB PO PRN ×4 (04:21→17:49)
[2018-05-01] MEDS: ONDANSETRON DISINTEGRATING 4 MG TAB PO PRN ×3 (04:24→23:29)
[2018-05-01] MEDS ORDERED: MAGNESIUM HYDROXIDE 30 ML UDCUP PO SCH (09:00)
[2018-05-01] MEDS ORDERED: PNEUMOC 13-VAL CONJ-DIP CRM/PF 0.5 ML SYR (PREVNAR 13) IM ONE (09:00)
[2018-05-01] MEDS: traMADol 50 MG TAB PO SCH ×3 (10:12→23:30)
[2018-05-01] MEDS: ENOXAPARIN 40 MG/0.4 ML SYR SC SCH (10:13)
[2018-05-01] MEDS: FAMOTIDINE 20 MG TAB PO SCH ×2 (10:14→20:43)
[2018-05-01] MEDS: SENNOSIDES/DOCUSATE SODIUM TAB PO SCH ×2 (10:14→20:43)
[2018-05-01] MEDS: ESTRADIOL 1 MG TAB PO SCH (10:15)
[2018-05-01] MEDS: LEVOTHYROXINE 75 MCG TAB PO SCH (10:15)
[2018-05-01] MEDS: SERTRALINE HCL 100 MG TAB PO SCH (10:15)
[2018-05-01] MEDS: LIOTHYRONINE SODIUM 5 MCG TAB PO SCH (10:15)
--- NOTE | 2018-05-01 12:29 | SOAPPROG ---
SOCHAR Progress Note Assessment/Plan: Assessment: - Widely metastatic CA - workup for primary in progress. She has an elevated CEA at 66. Liver bx performed on 29 APR 2018 - results pending. Last colonoscopy 8-9 years ago according to Cara. She did notice some blood in her stool today. Breast exam shows bilateral implants and irregular tissue but no obvious CA. GI primary is suspected. Will await biopsy results. She will need further staging with a PET/CT as an outpatient. She may also need a colonoscopy. Treatment plan will be discussed with the patient once we know what the primary site is. Unfortunately, treatment will likely be with palliative intent. Workup can be completed as an outpatient if she is able to take PO adequately and she is independent in her ADLs. - Abdominal pain - feels nauseated today. Pain in LLQ primarily. Hydromorphone takes pain from an 8-9 to a 5. She will likely need more sustained pain relief. She is a candidate for transdermal fentanyl. - Support system - tenuous with the recent deaths of her and special needs daughter. Plan: - Assess PO intake and ADL - I'm not sure that she is ready to go yet because of nausea and inadequate pain relief. Will add fentanyl - Check path when available - Further treatment planning w/u as an outpatient. Subjective: Nauseated and 'clammy'. Had a BM yesterday. Objective: Vital Signs Temp Pulse Resp BP Pulse Ox 36.6 C 80 18 124/59 H 92 05/01/18 11:42 05/01/18 11:42 05/01/18 11:42 05/01/18 11:42 05/01/18 11:42 Laboratory Results 05/01/18 04:00 05/01/18 04:00 04/29/18 04/30/18 05/01/18 23:59 23:59 23:59 Intake Total 100 1999 100 Output Total 1 Balance 100 1999 99 PT 14.2 SEC (12.0-15.0) 04/29/18 15:45 INR 1.08 (0.83-1.16) 04/29/18 15:45 Physical Exam - Physical Exam General Appearance: alert, mild distress Respiratory: lungs clear Cardiac/Chest: regular rate, rhythm Abdomen: other (mild tenderness LLQ without rebound tenderness.) Extremities: No swelling Neuro/Psych: oriented x 3, depressed affect ICD10 Worksheet Patient Problems: Problems Problem Status Onset Abdominal pain Acute Liver lesion Acute Malignancy Acute
[2018-05-01] MEDS: fentaNYL 25 MCG PATCH TD SCH (13:10)
--- NOTE | 2018-05-01 15:22 | HOSPPROG ---
Hospitalist Progress Note Assessment/Plan: 1. Abdominal pain/nausea, CT with metastatic lesions throughout abdomen. -s/p liver bx, results pending -breast exam yesterday by Dr Jimenez, may need colonoscopy (but OK as outpt too) -continue to transition to PO meds, patch added today also, goal is adequate pain control so can discharge home -discussed care plan with Dr Jimenez, will FU as an outpt at [facility] to review bx results, discuss palliative treatments -consider palliative consult Wednesday (she was 'overwhelmed' today so I did not discuss with her) 2. Depression/grief/stress -continue SSRI, increased dose -discussed need for new PCP/support (consider palliative) -behavioral health requested -discussed with CM 3. Spinal stenosis, s/p multiple spinal surgeries 4. Hypothyroid -TSH OK, continue current dose 5.anemia -stable 6. transaminitis, s/p bx yesterday -stable PCP:Dr Gonzalez at [facility] (retiring), several PCP names given to establish care (she prefers [place]/close to ) Diet: as tolerated VTE ppx: SCDs, Lovenox subq Code: DNR Dispo: unclear, will depend upon pain management issues Subjective: Says able to eat and drink but feels 'clammy' and nauseous sometimes. Still has 'back pain,' and corrects herself to say 'cancer pain.' Has a daughter in area that will stay with her, sister is flying in to help her when needed. No BM today and worried bc says painful when has a BM. Overall, very sad and is trying to 'be realistic' about her diagnosis. Objective: Vital Signs Temp Pulse Resp BP Pulse Ox 98 F 80 18 124/59 H 92 05/01/18 11:42 05/01/18 11:42 05/01/18 11:42 05/01/18 11:42 05/01/18 11:42 Laboratory Results 05/01/18 04:00 05/01/18 04:00 04/30/18 05/01/18 05/02/18 11:59 11:59 11:59 Intake Total 1600 600 Output Total 1 Balance 1600 599 PT 14.2 SEC (12.0-15.0) 04/29/18 15:45 INR 1.08 (0.83-1.16) 04/29/18 15:45 - Time Spent With Patient Time Spent with Patient: greater than 25 minutes Time Spent with Patient: Greater than 25 minutes spent on this patients care, greater than 50% of time spent counseling, educating, and coordinating care regarding the above mentioned plan. - Pending Discharge Pending Discharge Within 48 Hours: Yes Pending Discharge Date: 05/03/18 Pending Discharge Time: 11:00 - Physical Exam Constitutional: no apparent distress, not in pain Eyes: anicteric sclera Ears, Nose, Mouth, Throat: moist mucous membranes, hearing normal Cardiovascular: regular rate and rhythym, no murmur, rub, or gallop, No edema Respiratory: no respiratory distress, no rales or rhonchi, clear to auscultation Skin: warm Psychiatric: interacting appropriately, not encephalopathic, anxious, depressed ICD10 Worksheet Patient Problems: Problems Problem Status Onset Abdominal pain Acute Liver lesion Acute Malignancy Acute
[2018-05-01] MEDS: HYDROmorphONE/DILAUDID 1 MG/ML INJ IVP PRN (20:42)
[2018-05-01] MEDS: MAGNESIUM HYDROXIDE 30 ML UDCUP PO SCH (20:43)
[2018-05-01] MEDS: PROGESTERONE 200 MG TP SCH (23:08)
[2018-05-02] MEDS ORDERED: MELATONIN 3 MG TAB PO PRN (00:28)
[2018-05-02] MEDS: HYDROmorphONE/DILAUDID 4 MG TAB PO PRN ×4 (02:58→20:52)
--- NOTE | 2018-05-02 10:19 | SOAPPROG ---
SOAP Progress Note Assessment/Plan: Assessment: 1. Adenocarcinoma of unknown primary. Likely GI source (favor upper based on distribution of lesions) Plan: - await final path - will call [facility]I for EGD given likely upper GI source and symptoms of dysphagia - need to identify a primary tumor if possible - prognosis and treatment will depend on final dx - pt to f/u with Dr. Jimenez at [facility] after discharge. 25 min spent w/ pt and in coordination of care. d/w dr. simons. 05/02/18 10:17 Subjective: some abd discomfort, constipation. Objective: exam; thin, NAD Lungs CTAB CV rRR no MGR Abd: +BS. NT ND ext: no edema Vital Signs Temp Pulse Resp BP Pulse Ox 36.9 C 70 16 128/63 H 98 05/02/18 07:41 05/02/18 07:41 05/02/18 07:41 05/02/18 07:41 05/02/18 07:41 Laboratory Results 05/01/18 04:00 05/01/18 04:00 05/01/18 05/02/18 05/03/18 05:59 05:59 05:59 Intake Total 1100 900 Output Total 1 450 Balance 1099 450 PT 14.2 SEC (12.0-15.0) 04/29/18 15:45 INR 1.08 (0.83-1.16) 04/29/18 15:45 ICD10 Worksheet Patient Problems: Problems Problem Status Onset Abdominal pain Acute Liver lesion Acute Malignancy Acute
[2018-05-02] MEDS: ESTRADIOL 1 MG TAB PO SCH (10:52)
[2018-05-02] MEDS: SENNOSIDES/DOCUSATE SODIUM TAB PO SCH ×2 (10:52→20:53)
[2018-05-02] MEDS: LIOTHYRONINE SODIUM 5 MCG TAB PO SCH (10:52)
[2018-05-02] MEDS: ENOXAPARIN 40 MG/0.4 ML SYR SC SCH (10:52)
[2018-05-02] MEDS: LEVOTHYROXINE 75 MCG TAB PO SCH (10:53)
[2018-05-02] MEDS: SERTRALINE HCL 100 MG TAB PO SCH (10:53)
[2018-05-02] MEDS: FAMOTIDINE 20 MG TAB PO SCH ×2 (10:53→20:53)
[2018-05-02] MEDS: MAGNESIUM HYDROXIDE 30 ML UDCUP PO SCH ×2 (10:56→20:53)
[2018-05-02] MEDS: traMADol 50 MG TAB PO SCH ×2 (10:57→23:01)
--- NOTE | 2018-05-02 12:02 | PDCONSULT ---
Automation Driver Note: GI Consult Pt declined consult at this time. Will try again tomorrow.
[2018-05-02] MEDS: POLYETHYLENE GLYCOL 3350 17 GM PKT PO SCH (13:02)
--- NOTE | 2018-05-02 14:02 | ASMTCMCOM ---
CM Note CM Note Notes: GI consult was placed today. Flor Thiago also saw pt today. Path pending. pt will likely discharge independently with oncology follow-up. RN nurse navigator notified. CM available should needs arise. Plan: Independent Date Signed: 05/02/2018 02:02 PM Electronically Signed By:GENEVA Jovel
--- NOTE | 2018-05-02 16:59 | HOSPPROG ---
Hospitalist Progress Note Assessment/Plan: 1. Abdominal pain/nausea, CT with metastatic lesions throughout abdomen. -s/p liver bx, results pending -breast exam yesterday by Dr Jimenez, may need colonoscopy (but OK as outpt too) -continue to transition to PO meds, patch added today also, goal is adequate pain control so can discharge home -discussed care plan with Dr molina, will FU as an outpt at [facility] to review bx results, discuss palliative treatments -consider palliative consult Wednesday (she was 'overwhelmed' today so I did not discuss with her) 2. Depression/grief/stress -continue SSRI, increased dose -discussed need for new PCP/support (consider palliative) -behavioral health requested -discussed with CM 3. Spinal stenosis, s/p multiple spinal surgeries 4. Hypothyroid -TSH OK, continue current dose 5.anemia -stable Subjective: lengthy discussion. case d/w dr farah Objective: Vital Signs Temp Pulse Resp BP Pulse Ox 36.9 C 76 18 117/55 L 95 05/02/18 15:07 05/02/18 15:19 05/02/18 15:19 05/02/18 15:07 05/02/18 15:19 Laboratory Results 05/01/18 04:00 05/01/18 04:00 05/01/18 05/02/18 05/03/18 05:59 05:59 05:59 Intake Total 1100 900 Output Total 1 450 500 Balance 1099 450 -500 PT 14.2 SEC (12.0-15.0) 04/29/18 15:45 INR 1.08 (0.83-1.16) 04/29/18 15:45 - Physical Exam Constitutional: no apparent distress, appears nourished Eyes: PERRL, anicteric sclera Ears, Nose, Mouth, Throat: moist mucous membranes, hearing normal Cardiovascular: regular rate and rhythym, no murmur, rub, or gallop Respiratory: no respiratory distress, no rales or rhonchi Gastrointestinal: normoactive bowel sounds, soft, non-tender abdomen Genitourinary: no bladder fullness, No vargas in urethra Skin: warm, normal color Musculoskeletal: full muscle strength Neurologic: AAOx3 ICD10 Worksheet Patient Problems: Problems Problem Status Onset Abdominal pain Acute Liver lesion Acute Malignancy Acute
[2018-05-02] MEDS: ONDANSETRON DISINTEGRATING 4 MG TAB PO PRN (20:53)
[2018-05-02] MEDS: ZOLPIDEM TARTRATE 5 MG TAB PO PRN (22:07)
[2018-05-02] MEDS: PROGESTERONE 200 MG TP SCH (23:01)
[2018-05-03] MEDS: HYDROmorphONE/DILAUDID 4 MG TAB PO PRN ×2 (05:02→09:45)
[2018-05-03] MEDS: ONDANSETRON DISINTEGRATING 4 MG TAB PO PRN (05:03)
[2018-05-03] MEDS: ENOXAPARIN 40 MG/0.4 ML SYR SC SCH (10:23)
[2018-05-03] MEDS ORDERED: LR 1,000 ML IV ONE (12:45)
--- NOTE | 2018-05-03 13:07 | PDANEPAE ---
ANE History of Present Illness here for EGD ANE Past Medical History - Cardiovascular History Hx Hypertension: No Hx Arrhythmias: No Hx Chest Pain: No Hx Coronary Artery / Peripheral Vascular Disease: No - Pulmonary History Hx Oxygen in Use at Home: No Hx Sleep Apnea: Yes Sleep Apnea Screening Result - Last Documented: Positive - Endocrine History Hx Diabetes: No - Cancer History Hx Cancer: Yes - Chronic Pain History Chronic Pain: Yes ANE Review of Systems Review of Systems: - Exercise capacity METS (RN): 4 METS ANE Patient History - Allergies Allergies/Adverse Reactions: acetaminophen [From Percocet] Allergy (Verified 04/29/18 10:00) amitriptyline [From Elavil] Allergy (Verified 04/29/18 10:00) erythromycin base Allergy (Verified 04/29/18 10:00) hydrocodone [From Vicodin] Allergy (Verified 04/29/18 10:00) oxycodone [From Percocet] Allergy (Verified 04/29/18 10:00) pregabalin [From Lyrica] Allergy (Verified 04/29/18 10:00) risperidone [From Risperdal] Allergy (Verified 04/29/18 10:00) - Home Medications Home medications: home medication list seen and reviewed Home Medications: Acetaminophen [Tylenol ES 500 mg (*)] 1,000 mg PO Q6 PRN 04/29/18 [Last Taken Unknown] Aspirin EC [Aspirin EC 81 mg (*)] 81 mg PO DAILY 04/29/18 [Last Taken Unknown] Bisacodyl [Bisacodyl (*)] 5 mg PO PRN PRN 04/29/18 [Last Taken Unknown] Diazepam [Diazepam] 5 - 10 mg PO DAILY PRN 04/29/18 [Last Taken Unknown] Diclofenac Sodium [Voltaren] 2 gm TP QID 04/29/18 [Last Taken Unknown] Estradiol [Estradiol 1 MG (*)] 1 mg PO DAILY 04/29/18 [Last Taken Unknown] Herbals/Supplements -Info Only 1 ea PO DAILY 04/29/18 [Last Taken Unknown] Levothyroxine Sodium [Levothyroxine Sodium] 75 mcg PO DAILY 04/29/18 [Last Taken 04/29/18] Liothyronine Sodium [Liothyronine Sodium] 5 mcg PO DAILY 04/29/18 [Last Taken ] Methylphenidate HCl [Ritalin 20mg (*)] 20 mg PO 08,14 04/29/18 [Last Taken Unknown] Progesterone Creme 200 mg TP HS 04/29/18 [Last Taken Unknown] Rizatriptan Benzoate [Rizatriptan] 10 mg PO DAILY PRN MDD 30MG/24HR 04/29/18 [ Last Taken Unknown] Sertraline HCl [Zoloft 100mg (*)] 100 mg PO DAILY 04/29/18 [Last Taken Unknown] Zolpidem Tartrate [Zolpidem Tartrate] 5 - 10 mg PO HS PRN 04/29/18 [Last Taken Unknown] traMADol HCL [Tramadol HCl] 50 mg PO BID PRN 04/29/18 [Last Taken Unknown] traZODone [traZODONE 50MG (*)] 25 - 50 mg PO HS PRN 04/29/18 [Last Taken Unknown ] - NPO status NPO Status: no food or drink >8 hours NPO Since - Liquids (Date): 05/02/18 NPO Since - Liquids (Time): 18:00 NPO Since - Solids (Date): 05/02/18 NPO Since - Solids (Time): 18:00 - Anes Hx Anes Hx: no prior problems - Smoking Hx Smoking Status: Never smoked - Alcohol Use Alcohol Use: Sober - Family Anes Hx Family Anes Hx: none ANE Labs/Vital Signs - Labs Result Diagrams: 05/01/18 04:00 05/01/18 04:00 - Vital Signs Blood Pressure: 141/70 Heart Rate: 81 Respiratory Rate: 18 O2 Sat (%): 96 Height: 172.72 cm Weight: 61.235 kg ANE Physical Exam - Airway Neck exam: FROM Mallampati Score: Class 1 Mouth exam: poor dentition - Pulmonary Pulmonary: no respiratory distress, clear to auscultation - Cardiovascular Cardiovascular: regular rate and rhythym, no murmur, rub, or gallop - ASA Status ASA Status: III ANE Anesthesia Plan Anesthesia Plan: GA with mask Total IV Anesthesia: Yes
[2018-05-03] MEDS ORDERED: PROPOFOL/EMULSION 500 MG/50 ML BOTTLE IV ONE (13:11)
--- NOTE | 2018-05-03 13:14 | PDGENHP ---
History & Physical Chief Complaint: cc odynophagia History of Present Illness: met cancer unknown primary Relevant Physical Exam: cv [id number] nl. cheat cta. abd + bs tender. asa11
[2018-05-03] MEDS ORDERED: NALOXONE HCL 0.4 MG/ML INJ IVP PRN (13:25)
--- NOTE | 2018-05-03 13:29 | GIREPORT ---
[facility] - Endoscopy Department Patient Name: Cara Laughlin Procedure Date: 05/03/2018 12:44 PM Patient Type: Inpatient Attending MD/ ER Physician: Maria Elena Garcia MD Procedure: Upper GI endoscopy Indications: Dysphagia, Odynophagia, adenocarcinoma unknown primary Providers: Maria Elena Garcia MD Medicines: Monitored Anesthesia Care Complications: No immediate complications. Description of Procedure: After obtaining informed consent, the endoscope was passed under direct vision. Throughout the procedure, the patient's blood pressure, pulse, and oxygen saturations were monitored continuously. The Endoscope was intro duced through the mouth, and advanced to the third part of duodenum. The uppe r GI endoscopy was accomplished without difficulty. The patient tolerated th e procedure well. Findings: LA Grade A (one or more mucosal breaks less than 5 mm, not extending be tween tops of 2 mucosal folds) esophagitis with no bleeding was found in the lower third of the esophagus. Localized moderate inflammation characterized by erosions and granulari ty was found in the gastric antrum. Biopsies were taken with a cold forcep s for histology. Estimated blood loss was minimal. A deformity was found in the gastric fundus. The examined duodenum was normal. Estimated Blood Loss: Estimated blood loss was minimal. Post Op Diagnosis: - LA Grade A reflux esophagitis. - Gastritis. Biopsied. - Deformity in the gastric fundus. - Normal examined duodenum. Recommendation: - Await path results. - Return patient to [facility] for ongoing care. - Use a proton pump inhibitor PO daily for 12 weeks. - Consider colonoscopy per oncology, this can be done as outpatient wit h propofol. - Will sign off for now. Please call if colposcopy desired during this hospital stay. - Thank you for allowing me to participate in the care of your patient. Attending Participation: I personally performed the entire procedure. Maria Elena Garcia MD Maria Elena Garcia MD 05/03/2018 1:29:07 PM This report has been signed electronicallyMaria Elena Garcia MD Number of Addenda: 0 Note Initiated On: 05/03/2018 12:44 PM Total Procedure Duration Time 0 hours 4 minutes 13 seconds [email or web address]
--- NOTE | 2018-05-03 13:32 | POSTANESTH ---
Post Anesthetic Evaluation Cardiovascular Status: Normal, Stable, Similar to Pre-Op Cond Respiratory Status: Normal, Stable, Similar to Pre-op Cond. Level of Consciousness/Mental Status: Can Participate in Eval, Alert and Oriented Pain Control: Adequate, Prn Tx Ordered Nausea/Vomiting Control: Adequate, Prn Tx Ordered Complications Possibly Related to Anesthesia: None Noted
[2018-05-03] MEDS ORDERED: ONDANSETRON 4 MG/2 ML VIAL ONE (13:54)
[2018-05-03] MEDS ORDERED: HYDROmorphONE/DILAUDID 2 MG TAB ONE (13:55)
[2018-05-03] MEDS: ONDANSETRON 4 MG/2 ML VIAL IVP PRN (14:01)
[2018-05-03] MEDS: HYDROmorphONE/DILAUDID 2 MG TAB PO PRN ×2 (14:01→18:37)
--- NOTE | 2018-05-03 14:03 | GCON ---
DATE OF CONSULTATION: 05/03/2018 REFERRING PHYSICIAN: Smooth Moreira MD CHIEF COMPLAINT: Odynophagia and malignancy, unknown primary. HISTORY OF PRESENT ILLNESS: I am asked to see this patient in consultation by Dr. Moreira for chief complaint of dysphagia. The patient is a pleasant 68-year-old who unfortunately was recently diagno sed with metastatic adenocarcinoma to the liver, unknown primary. There is concern that she may have a GI source and as she has been having some odynophagia, possible dysphagia, consideration for upper endoscopy was requested. Patient denies to me dysphagia, but does state that she has had some pain with swallowing over the past few days. This has also been associated with significant abdominal jessy n. She denies GERD symptoms. Has constipation. No diarrhea. She did note some black stools prior to admission. She has never had an upper endoscopy, said that she had a colonoscopy approximately 8 years ago. She has had a hemorrhoidectomy done. ALLERGIES: The patient has multiple allergies, including Percocet, amitriptyline, erythromycin, Parvez din, Percocet, Lyrica, and Risperdal. MEDICATIONS: On presentation are: Zoloft, bisacodyl, herbs, Voltaren, baby aspirin, estradiol, levo thyroxine, tramadol, diazepam, Zofran. PAST MEDICAL HISTORY: Notable for attention deficit hyperactivity disorder, COPD, hypothyroidism, po sttraumatic stress disorder, neuropathy, chronic fatigue, spinal stenosis, hysterectomy. SOCIAL HISTORY: Patient recently lost her and her daughter. She denies alcohol use. FAMILY HISTORY: Possible gastric cancer in a grandmother, age unknown. REVIEW OF SYSTEMS: I performed a complete review of systems, which is negative, except for the perti nent positives, negatives noted above in the HPI. PHYSICAL EXAM: VITAL SIGNS: Afebrile at 37.1, BP 128/58, pulse 76. GENERAL: Alert and oriented. HEENT: Eyes: No scleral icterus. ENT: No oral lesions. CARDIOVASCULAR: Regular rate and rhythm. CHEST: Clear to auscultation. ABDOMEN: Positive bowel sounds. Soft, nontender. NEUROLOGIC: Non focal. SKIN: No lesions. LABORATORY/IMAGING: Hematocrit 38 with a normal white count. CT scan of the abdomen: Extensive low-attenuation liver lesions consistent with metastasis. Multipl e pulmonary nodules. Adenopathy. There is multiple colonic diverticulosis, staple line seen in the rectum, and gastric fundus diverticulum. ASSESSMENT: Patient with metastatic cancer, unknown primary. She does have some upper symptoms, inc luding odynophagia and possible dysphagia. Agree with upper endoscopy for evaluation. PLAN: Recommend upper endoscopy. This should be done with anesthesia given her medication use and c hronic pain. Further recommendations to follow. Thank you for this consult. /[id number]/MODL
--- NOTE | 2018-05-03 16:12 | HOSPPROG ---
Hospitalist Progress Note Assessment/Plan: 1. Abdominal pain/nausea, CT with metastatic lesions throughout abdomen. -s/p liver bx, results pending -breast exam yesterday by Dr Jimenez, may need colonoscopy (but OK as outpt too) -continue to transition to PO meds, patch added today also, goal is adequate pain control so can discharge home -discussed care plan with Dr molina, will FU as an outpt at [facility] to review bx results, discuss palliative treatments -consider palliative consult Wednesday (she was 'overwhelmed' today so I did not discuss with her) 2. Depression/grief/stress -continue SSRI, increased dose -discussed need for new PCP/support (consider palliative) 3. Spinal stenosis, s/p multiple spinal surgeries 4. Hypothyroid -TSH OK, continue current dose 5.anemia -stable Subjective: unremarkable egd. discussed w dr molina Objective: Vital Signs Temp Pulse Resp BP Pulse Ox 98.0 C H 73 18 130/62 H 93 05/03/18 15:16 05/03/18 15:16 05/03/18 15:16 05/03/18 15:16 05/03/18 15:16 Laboratory Results 05/01/18 04:00 05/01/18 04:00 05/02/18 05/03/18 05/04/18 05:59 05:59 05:59 Intake Total 900 500 450 Output Total 450 1050 0 Balance 450 -550 450 PT 14.2 SEC (12.0-15.0) 04/29/18 15:45 INR 1.08 (0.83-1.16) 04/29/18 15:45 - Physical Exam Constitutional: no apparent distress, appears nourished Eyes: PERRL, anicteric sclera Ears, Nose, Mouth, Throat: moist mucous membranes, hearing normal Cardiovascular: regular rate and rhythym, no murmur, rub, or gallop Respiratory: no respiratory distress, no rales or rhonchi Gastrointestinal: soft, non-tender abdomen Genitourinary: No vargas in urethra Skin: warm, normal color Musculoskeletal: full muscle strength Neurologic: AAOx3 ICD10 Worksheet Patient Problems: Problems Problem Status Onset Abdominal pain Acute Liver lesion Acute Malignancy Acute
[2018-05-03] MEDS: ESTRADIOL 1 MG TAB PO SCH (18:35)
[2018-05-03] MEDS: MAGNESIUM HYDROXIDE 30 ML UDCUP PO SCH ×2 (18:35→21:45)
[2018-05-03] MEDS: POLYETHYLENE GLYCOL 3350 17 GM PKT PO SCH (18:35)
[2018-05-03] MEDS: LEVOTHYROXINE 75 MCG TAB PO SCH (18:35)
[2018-05-03] MEDS: SENNOSIDES/DOCUSATE SODIUM TAB PO SCH ×2 (18:36→21:45)
[2018-05-03] MEDS: traMADol 50 MG TAB PO SCH ×2 (18:36→21:46)
[2018-05-03] MEDS: LIOTHYRONINE SODIUM 5 MCG TAB PO SCH (18:37)
[2018-05-03] MEDS: SERTRALINE HCL 100 MG TAB PO SCH (18:37)
[2018-05-03] MEDS: FAMOTIDINE 20 MG TAB PO SCH (18:38)
[2018-05-03] MEDS: ZOLPIDEM TARTRATE 5 MG TAB PO PRN (21:47)
[2018-05-04] MEDS: PROGESTERONE 200 MG TP SCH (01:09)
[2018-05-04] MEDS: HYDROmorphONE/DILAUDID 2 MG TAB PO PRN ×3 (03:17→13:20)
[2018-05-04] MEDS: ONDANSETRON DISINTEGRATING 4 MG TAB PO PRN ×3 (03:18→13:20)
[2018-05-04] MEDS: ESTRADIOL 1 MG TAB PO SCH (08:18)
[2018-05-04] MEDS: SERTRALINE HCL 100 MG TAB PO SCH (08:18)
[2018-05-04] MEDS: LEVOTHYROXINE 75 MCG TAB PO SCH (08:18)
[2018-05-04] MEDS: ENOXAPARIN 40 MG/0.4 ML SYR SC SCH (08:20)
[2018-05-04] MEDS ORDERED: PANTOPRAZOLE SODIUM 40 MG TAB PO SCH (09:00)
[2018-05-04] MEDS ORDERED: MAGNESIUM CITRATE 300 ML BOTTLE PO ONE (09:02)
--- NOTE | 2018-05-04 09:03 | HOSPPROG ---
Hospitalist Progress Note Assessment/Plan: 1. Abdominal pain/nausea, CT with metastatic lesions throughout abdomen. -s/p liver bx, results pending -breast exam yesterday by Dr Jimenez, may need colonoscopy (but OK as outpt too) -continue to transition to PO meds, patch added today also, goal is adequate pain control so can discharge home -discussed care plan with Dr molina, will FU as an outpt at [facility] to review bx results, discuss palliative treatments -consider palliative consult Wednesday (she was 'overwhelmed' today so I did not discuss with her) 2. Depression/grief/stress -continue SSRI, increased dose -discussed need for new PCP/support (consider palliative) constipation: aggressive bowel regimen today 3. Spinal stenosis, s/p multiple spinal surgeries 4. Hypothyroid -TSH OK, continue current dose 5.anemia -stable Subjective: constipated Objective: Vital Signs Temp Pulse Resp BP Pulse Ox 36.6 C 74 12 114/60 90 L 05/04/18 08:13 05/04/18 08:13 05/04/18 08:13 05/04/18 08:13 05/04/18 08:13 Laboratory Results 05/01/18 04:00 05/01/18 04:00 05/03/18 05/04/18 05/05/18 05:59 05:59 05:59 Intake Total 500 1250 Output Total 1050 0 Balance -550 1250 PT 14.2 SEC (12.0-15.0) 04/29/18 15:45 INR 1.08 (0.83-1.16) 04/29/18 15:45 - Physical Exam Constitutional: no apparent distress, appears nourished Eyes: PERRL, anicteric sclera Ears, Nose, Mouth, Throat: moist mucous membranes, hearing normal Cardiovascular: regular rate and rhythym, no murmur, rub, or gallop Respiratory: no respiratory distress, no rales or rhonchi Gastrointestinal: normoactive bowel sounds, soft, non-tender abdomen, No guarding, No rebound Genitourinary: no bladder fullness, No vargas in urethra Skin: warm, normal color Musculoskeletal: full muscle strength Neurologic: AAOx3 ICD10 Worksheet Patient Problems: Problems Problem Status Onset Abdominal pain Acute Liver lesion Acute Malignancy Acute
[2018-05-04] MEDS: traMADol 50 MG TAB PO SCH (09:07)
[2018-05-04] MEDS: POLYETHYLENE GLYCOL 3350 17 GM PKT PO SCH (09:08)
[2018-05-04] MEDS: SENNOSIDES/DOCUSATE SODIUM TAB PO SCH (10:58)
[2018-05-04] MEDS: MAGNESIUM HYDROXIDE 30 ML UDCUP PO SCH (10:58)
[2018-05-04] MEDS: LIOTHYRONINE SODIUM 5 MCG TAB PO SCH (11:05)
--- NOTE | 2018-05-04 13:09 | ASMTCMCOM ---
CM Note CM Note Notes: Patient plan of care reviewed in interdisciplinary rounds. New diagnosis of metastatic disease. Likely medically ready to discharge to home. She shares her sister will be flying in to town to stay with her a while. No other needs identified at his time. CM available should needs arise. Plan: Dc to home no needs. Date Signed: 05/04/2018 01:08 PM Electronically Signed By:Saumya Madrid RN
[2018-05-04] MEDS: fentaNYL 25 MCG PATCH TD SCH (13:20)
[2018-05-04 15:07] VITALS: BP 125/59
--- NOTE | 2018-05-04 19:25 | GDS ---
DISCHARGE DIAGNOSES: 1. Metastatic cancer of upper gastrointestinal primary, exact primary uncertain. 2. History of hypothyroidism, posttraumatic stress disorder, migraines. Please see admission history and physical by Dr. Lita Skaggs. The patient presented with 6 weeks of abdominal pain with nausea and a couple weeks of back pain. CT scan revealed multiple liver lesions suggestive of metastases. She underwent a liver biopsy on the day of presentation that showed moder ately differentiated adenocarcinoma consistent with upper GI. She had an EGD that failed to demonstr ate any significant lesion. She did not have a colonoscopy. She was seen by GI and Oncology. She had significant constipation, which resolved to medicine. She was started on fentanyl patches wi th some Dilaudid pills for breakthrough. She is discharged home with outpatient followup with /[id number]/[facility]
== END 2018-05-04 17:34 | disposition home or self-care (01) | DRG 375 ==
LOC: EDUNIT# → F1N 13:24
PROVIDERS: ADMIT Family Medicine; ATTEND Internal Medicine
PROC: 0FB13ZX Excision of Right Lobe Liver, Percutaneous Approach, Diagnostic (ICD-10-PCS; 2018-04-29)
PROC: 0DB78ZX Excision of Stomach, Pylorus, Via Natural or Artificial Opening Endoscopic, Diagnostic (ICD-10-PCS; principal; 2018-05-03 13:30)
DX: C26.9 Malignant neoplasm of ill-defined sites within the digestive system (principal); C78.7 Secondary malignant neoplasm of liver and intrahepatic bile duct; C78.02 Secondary malignant neoplasm of left lung; C78.01 Secondary malignant neoplasm of right lung; F43.21 Adjustment disorder with depressed mood; K59.00 Constipation, unspecified; D64.9 Anemia, unspecified; F90.9 Attention-deficit hyperactivity disorder, unspecified type; G43.909 Migraine, unspecified, not intractable, without status migrainosus; J44.9 Chronic obstructive pulmonary disease, unspecified; E03.9 Hypothyroidism, unspecified; G47.33 Obstructive sleep apnea (adult) (pediatric); F43.10 Post-traumatic stress disorder, unspecified; R53.82 Chronic fatigue, unspecified; G62.9 Polyneuropathy, unspecified; Z98.1 Arthrodesis status; Z96.651 Presence of right artificial knee joint; Z87.891 Personal history of nicotine dependence; Z66 Do not resuscitate; Z23 Encounter for immunization
CPT/HCPCS: 82435-PO; 82565-PO; 82947-PO; 84132-PO; 84295-PO; 84520-PO; 85014-ER; 86301-90; 96374; G0008; J1170; J1650; J2250; J2310; J2405; J2704; J3010; Q9967

== ENCOUNTER → 2018-06-06 | Day surgery (SDC) | payer OTHER, MEDICARE | END | disposition home or self-care (01) | LOC: FIMAGING 08:10 | PROVIDERS: ATTEND Internal Medicine Hematology & Oncology | DX: C18.9 Malignant neoplasm of colon, unspecified (principal) | CPT/HCPCS: 36573; 76937; 77001; C1751 ==

== ENCOUNTER 2018-08-06 11:18 | Emergency (ER) | payer OTHER, MEDICARE ==
[2018-08-06] MEDS ORDERED: NS 1,000 ML IV ONE (11:38)
--- NOTE | 2018-08-06 11:54 | EDPHY ---
HPI/HX/ROS/PE/MDM Narrative: CHIEF COMPLAINT: Constipation HISTORY OF PRESENT ILLNESS: The patient is a 68 y/o female with a history of metastasized colon cancer complaining of constipation. Two weeks ago, she started IV chemotherapy. Since starting the treatment, she has experienced constipation. She has had several fleet enemas and taken some magnesium citrate without significant improvement. When she tries to pass stool, she feels like vomiting. She denies fever, diarrhea, or any other associated symptoms. She denies history of bowel obstructions. She has a history of hysterectomy, oophorectomy, and appendectomy. No fever, chills, chest pain, shortness of breath, palpitations, vomiting, diarrhea, urinary complaints, headache, lightheadedness. REVIEW OF SYSTEMS: A comprehensive 10 system review of systems is otherwise negative aside from elements mentioned in the history of present illness and medical decision making PAST MEDICAL HISTORY: Hysterectomy, oophorectomy, appendectomy, metastasized colon cancer SOCIAL HISTORY: Friend at bedside, lives in [place], retired VITAL SIGNS: Reviewed by me GENERAL: Well-developed, well-nourished, resting comfortably in no respiratory distress. HEENT: Atraumatic. Eyes: No icterus, no injection. Mouth: moist mucous membranes. No erythema or lesions. Neck: supple with no adenopathy. LUNGS: Clear to auscultation bilaterally, no wheezes, rhonchi or rales. CARDIAC: Regular rate and rhythm, no rubs, murmurs or gallops. ABDOMEN: Abdomen slightly distended. Soft, nontender, bowel sounds normal. BACK: No CVA tenderness. EXTREMITIES: No trauma. No edema. Range of motion is normal throughout. NEURO: Alert and oriented, grossly nonfocal. SKIN: Warm and dry, no rash. PSYCHIATRIC: Normal mentation, no agitation. ED Course: Study: X-ray of the abdomen Indication: Constipation Results: X-ray scan of the abdomen was obtained. The results of the study are: Constipation The study was read by the radiologist, Dr. Cisneros. I viewed the images myself on the PACS system. Study: CT of the abdomen Indication: Constipation Results: CT scan of the abdomen was obtained. The results of the study are: Constipation. No bowel obstruction The study was read by the radiologist, Dr. Cisneros. I viewed the images myself on the PACS system. The patient presents with constipation. Two weeks ago she began IV chemotherapy. Since then she has been constipated. Fleet enemas have not significantly improved symptoms. Plan for CBC, basic metabolic panel, lipase, abdominal x-ray, and soapsuds enema. 12:00 - X-ray shows constipation. Plan for CT to further evaluate for bowel obstruction. 13:00 - CT indicates constipation. No bowel obstruction. I feel like this patient is safe to return home with instructions to use magnesium citrate and consult her oncologist for ongoing solution. The patient agrees to this course of action. Follow up instructions and return precautions given. MDM: After obtaining the patient's history and performing an examination, differential diagnosis considered included but was not limited to constipation, bowel obstruction, metastatic disease, obstipation. - Data Points Imaging Results: Abdomen CT 08/06/18 11:38 Impression: 1. Mixed response of pulmonary nodules at the lung bases with some increased, another is decreased in size. 2. Mild decrease in size of multiple hepatic metastases with more confluence central necrosis and less peripheral marginal enhancement. 3. Mild decrease in periaortic and mesenteric nodularity/lymphadenopathy. 4. Moderate constipation. 5. Stable diverticulum off the gastric fundus. Findings discussed with Jocelyne Jordan MD at 13:09 hour, 08/06/2018. Abdomen X-Ray 08/06/18 11:54 Impression: Moderate constipation. Imaging: Discussed imaging studies w/ electrical construction project manager Radiologist, I viewed and interpreted images myself Laboratory Results: Laboratory Results 08/06/18 12:43 08/06/18 12:43 Medications Given: Discontinued Medications Sodium Chloride (Ns) 1,000 mls @ 0 mls/hr IV EDNOW ONE; Wide Open PRN Reason: Protocol Stop: 08/06/18 11:39 Last Admin: 08/06/18 12:00 Dose: 1,000 mls General Time Seen by Provider: 08/06/18 11:36 Initial Vital Signs: Initial Vital Signs Temperature (C) 37.0 C 08/06/18 11:22 Heart Rate 105 H 08/06/18 11:22 Respiratory Rate 16 08/06/18 11:22 Blood Pressure 121/78 H 08/06/18 11:22 O2 Sat (%) 97 08/06/18 11:22 O2 Delivery Mode Room Air Allergies/Adverse Reactions: acetaminophen [From Percocet] Allergy (Verified 04/29/18 10:00) amitriptyline [From Elavil] Allergy (Verified 04/29/18 10:00) erythromycin base Allergy (Verified 04/29/18 10:00) hydrocodone [From Vicodin] Allergy (Verified 04/29/18 10:00) oxycodone [From Percocet] Allergy (Verified 04/29/18 10:00) pregabalin [From Lyrica] Allergy (Verified 04/29/18 10:00) risperidone [From Risperdal] Allergy (Verified 04/29/18 10:00) Home Medications: Medication Instructions Recorded Acetaminophen [Tylenol ES 500 mg 1,000 mg PO Q6 PRN 04/29/18 (*)] Aspirin EC [Aspirin EC 81 mg (*)] 81 mg PO DAILY 04/29/18 Bisacodyl [Bisacodyl (*)] 5 mg PO PRN PRN 04/29/18 Diazepam 5 - 10 mg PO DAILY PRN 04/29/18 Diclofenac Sodium [Voltaren] 2 gm TP QID 04/29/18 Estradiol [Estradiol 1 MG (*)] 1 mg PO DAILY 04/29/18 Herbals/Supplements -Info Only 1 ea PO DAILY 04/29/18 Levothyroxine Sodium 75 mcg PO DAILY 04/29/18 Liothyronine Sodium 5 mcg PO DAILY 04/29/18 Methylphenidate HCl [Ritalin 20mg 20 mg PO 08,14 04/29/18 (*)] Progesterone Creme 200 mg TP HS 04/29/18 Rizatriptan Benzoate [Rizatriptan] 10 mg PO DAILY PRN MDD 30MG/24HR 04/29/18 Sertraline HCl [Zoloft 100mg (*)] 100 mg PO DAILY 04/29/18 Zolpidem Tartrate 5 - 10 mg PO HS PRN 04/29/18 traMADol HCL [Tramadol HCl] 50 mg PO BID PRN 04/29/18 traZODone [traZODONE 50MG (*)] 25 - 50 mg PO HS PRN 04/29/18 HYDROmorphone HCL [Dilaudid 2 mg 4 mg PO Q4HRS PRN #40 tab 05/04/18 (*)] Polyethylene Glycol 3350 [Miralax 17 gm PO DAILY pkt 05/04/18 17 gm (*)] fentaNYL [Duragesic 25 MCG Patch 25 mcg TD Q72H #10 patch 05/04/18 (*)] [id number]/Sod Sulf,Bicarb,Cl/KCl 1 each PO ONCE #1 powd.pack 08/06/18 [Golytely Packet] Departure - Departure Disposition: Home, Routine, Self-Care Clinical Impression: Malignancy Constipation Qualifiers: Constipation type: unspecified constipation type Qualified Code(s): K59.00 - Constipation, unspecified Abdominal pain Qualifiers: Abdominal location: generalized Qualified Code(s): R10.84 - Generalized abdominal pain Condition: Good Instructions: Constipation (ED) Additional Instructions: I believe that you need to have some type of oral medication to help with her constipation. You may obtain a bottle magnesium citrate. Please mix half the bottle with 16 oz of Gatorade and drink over 15 min. If you do not have stool output within the next 2-3 hours, please repeat procedure. If the magnesium citrate is not effective at treating her constipation, you have also been given a prescription for GoLYTELY. You should mix the powder with liquid to make 4 L. Then drink up to a total of of 4 liters at a rate of 240 mL (8 oz.) every 10 minutes, until 4 liters are consumed OR until you are passing clear rectal effluent is clear. Rapid drinking of each portion is preferred to drinking small amounts continuously. You should also consider taking MiraLax daily. Please be sure to drink plenty of fluid. Referrals: Renan Jimenez MD [Primary Care Provider] - As per Instructions Prescriptions: [id number]/Sod Sulf,Bicarb,Cl/KCl [Golytely Packet] 1 each PO ONCE #1 powd.pack Report Scribed for: Jocelyne Jordan Report Scribed by: Susu Francois Date of Report: 08/06/18 Time of Report: 15:32 Physician Review and Approval Statement: Portions of this note were transcribed by a bacteriologist medical. I personally performed a history, physical exam, medical decision making, and confirmed accuracy of information the transcribed note.
[2018-08-06] MEDS ORDERED: IOPAMIDOL (ISOVUE-300) 100 ML BTL ONE (12:05)
[2018-08-06 12:53] LABS: PLATELET COUNT 247 10^3/uL (150-400)
[2018-08-06 13:51] VITALS: BP 142/90
== END 2018-08-06 13:50 | disposition home or self-care (01) ==
DX: K59.00 Constipation, unspecified (principal); C18.9 Malignant neoplasm of colon, unspecified; Z92.21 Personal history of antineoplastic chemotherapy
CPT/HCPCS: 74019; 74177; 99285; Q9967